=== PATIENT | male | born 1960 | race Caucasian/White ===

== ENCOUNTER → 2021-11-18 10:38 | Outpatient (BNVA) | payer MEDICARE, SELFPAY | PROVIDERS: PCP Nurse Practitioner; Visit Provider Nurse Practitioner | DX: M25.571 Pain in right ankle and joints of right foot (principal); S82.831A Other fracture of upper and lower end of right fibula, initial encounter for closed fracture; X58.XXXA Exposure to other specified factors, initial encounter | CPT/HCPCS: 73610 ==

== ENCOUNTER → 2023-03-11 10:36 | Outpatient (BNVA) | payer MEDICARE, SELFPAY | PROVIDERS: PCP Nurse Practitioner; Visit Provider Nurse Practitioner | DX: Z12.5 Encounter for screening for malignant neoplasm of prostate (principal); Z13.6 Encounter for screening for cardiovascular disorders; R13.10 Dysphagia, unspecified | CPT/HCPCS: 80053; 80061; 85025; G0103 ==

== ENCOUNTER 2023-06-02 16:05 | Outpatient (CLI) | payer MEDICARE, SELFPAY ==
--- NOTE | 2023-06-02 16:30 | CT_ITS ---
WS: [id number] LDCT LUNG CANCER SCREENING HISTORY: F17.210 - Nicotine dependence, cigarettes, uncomplicated TECHNIQUE: Axial imaging performed from the apices to 1 cm below the costophrenic angles. Coronal and sagittal reformats are submitted with axial MIP series. All CT scans at [facility] use at least one of these dose optimization techniques: automated exposure control; mA and/or kV adjustment per patient size (includes targeted exams where dose is matched to clinical indication); or iterativ e reconstruction. DLP: 69.60 mGy.cm DIvol: Mean CTDIvol: 1.30 (mGy) COMPARISON: None available. Diagnostic quality: Satisfactory Lungs: Marked centrilobular emphysema. Large bulla in the upper lung perez. Slightly spiculated nonc alcified nodule measuring 5 mm RIGHT upper lobe. Additional areas of scarring at the lung bases. No a dditional nodule or mass. No endobronchial lesions. Heart: Normal size heart with no pericardial effusion.. Other findings: Minimal atherosclerosis aorta. Normal sized pulmonary artery. No mediastinal or hilar adenopathy. Small hiatal hernia. No adrenal mass. Mild anterior wedging of T7. IMPRESSION: CT/CT lung screening 54130 LUNG-RADS: 2-Benign Appearance or Behavior FOLLOW UP: 12 Month: Continue annual screening with LDCT OTHER FINDINGS (S MODIFIER): None.
== END 2023-06-02 16:06 | disposition home or self-care (01) ==
PROVIDERS: PCP Nurse Practitioner; Visit Provider Nurse Practitioner
DX: Z12.2 Encounter for screening for malignant neoplasm of respiratory organs (principal); F17.210 Nicotine dependence, cigarettes, uncomplicated
CPT/HCPCS: 71271; 80053; 80061; 85025; G0103

== ENCOUNTER → 2023-12-22 08:43 | Outpatient (BNVA) | payer MEDICARE, SELFPAY | PROVIDERS: PCP Nurse Practitioner; Visit Provider Nurse Practitioner | DX: Z13.6 Encounter for screening for cardiovascular disorders (principal) | CPT/HCPCS: 80053; 80061 ==

== ENCOUNTER → 2024-08-28 09:50 | Outpatient (BNVA) | payer MEDICARE, SELFPAY | PROVIDERS: PCP Nurse Practitioner; Visit Provider Nurse Practitioner | DX: M19.011 Primary osteoarthritis, right shoulder (principal) | CPT/HCPCS: 73030 ==

== ENCOUNTER 2024-09-04 09:08 | Outpatient (CLI) | payer MEDICARE, SELFPAY ==
--- NOTE | 2024-09-04 09:00 | CT_ITS ---
WS: [id number] LDCT LUNG CANCER SCREENING HISTORY: F17.210 - Nicotine dependence, cigarettes, uncomplicated TECHNIQUE: Axial imaging performed from the apices to 1 cm below the costophrenic angles. Coronal and sagittal reformats are submitted with axial MIP series. All CT scans at [facility] use at least one of these dose optimization techniques: automated exposure control; mA and/or kV adjustment per patient size (includes targeted exams where dose is matched to clinical indication); or iterativ e reconstruction. DLP: 82.71 mGy.cm DIvol: Mean CTDIvol: 1.80 (mGy) COMPARISON: 06/02/2023 Diagnostic quality: Satisfactory Lungs: Pulmonary hyperexpansion with bullous emphysema. No change in a spiculated 5 mm nodule in the RIGHT upper lobe. No pulmonary mass or nodule. Bilateral lower lobe subsegmental atelectasis. Heart: Normal size heart with no pericardial effusion.. Other findings: No mediastinal or hilar adenopathy. Fullness at the RIGHT hilum is similar to the alber or study and probably related to pulmonary vasculature. Small hiatal hernia. No adrenal mass. Mild an terior wedging of T7. CT/CT lung screening [id number] IMPRESSION: LUNG-RADS: 2-Benign Appearance or Behavior FOLLOW UP: 12 Month: Continue annual screening with LDCT OTHER FINDINGS (S MODIFIER): None.
== END 2024-09-04 09:09 | disposition home or self-care (01) ==
PROVIDERS: PCP Nurse Practitioner; Visit Provider Nurse Practitioner
DX: Z12.2 Encounter for screening for malignant neoplasm of respiratory organs (principal); F17.210 Nicotine dependence, cigarettes, uncomplicated; J43.9 Emphysema, unspecified; R91.1 Solitary pulmonary nodule; J98.11 Atelectasis; K44.9 Diaphragmatic hernia without obstruction or gangrene
CPT/HCPCS: 71271

== ENCOUNTER → 2024-10-17 09:45 | Outpatient (BNVA) | payer MEDICARE, SELFPAY | PROVIDERS: PCP Nurse Practitioner; Referring Provider Nurse Practitioner; Visit Provider Nurse Practitioner Family | DX: L82.1 Other seborrheic keratosis (principal); D17.21 Benign lipomatous neoplasm of skin and subcutaneous tissue of right arm; L90.5 Scar conditions and fibrosis of skin; L57.8 Other skin changes due to chronic exposure to nonionizing radiation; D48.5 Neoplasm of uncertain behavior of skin | CPT/HCPCS: 11102; 99203 ==

== ENCOUNTER → 2024-11-06 09:50 | Outpatient (BNVA) | payer MEDICARE, SELFPAY | PROVIDERS: PCP Nurse Practitioner; Visit Provider Nurse Practitioner | DX: Z13.6 Encounter for screening for cardiovascular disorders (principal); Z12.5 Encounter for screening for malignant neoplasm of prostate; E55.9 Vitamin D deficiency, unspecified; M54.6 Pain in thoracic spine | CPT/HCPCS: 72072; 80053; 80061; 82306; G0103 ==

== ENCOUNTER 2025-04-20 14:29 | Outpatient (CLI) | payer MEDICARE, SELFPAY ==
--- NOTE | 2025-04-20 15:00 | USCV_ITS ---
Eusebio Ashraf Age: 64 Gender: M : 1960 Exam Date: 04/20/2025 14:44 Ordering Phys: Everton Galicia Technologist: CRISTIN Exam Location: [facility] – [place], [place] Indication: LEFT LEG SWELLING HISTORY: Lower extremity swelling-LEFT PROCEDURES: Venous duplex imaging was performed in only the left lower extremity. The following venous structures were evaluated: common femoral vein, profunda vein, proximal portion of the greater saphenous vein, superficial femoral vein, and the popliteal vein. In addition, the posterior tibial and peroneal trunk were evaluated. FINDINGS: Normal 2-D Doppler and augmentation and compressibility throughout the lower extremity venous structures. Additional imaging through the proximal calf veins also reveals no thrombus. Limited evaluation of the greater saphenous vein is patent with no thrombus. CONCLUSIONS No DVT left lower extremity. Dr. Shanna Sadler DO (Electronically Signed) Final Date: 20 April 2025 15:13 S
== END 2025-04-20 14:30 | disposition home or self-care (01) ==
LOC: RAD 14:31
PROVIDERS: PCP Nurse Practitioner; Visit Provider Nurse Practitioner
DX: M79.662 Pain in left lower leg (principal); F17.210 Nicotine dependence, cigarettes, uncomplicated
CPT/HCPCS: 93971